=== PATIENT | male | born 1975 | race Caucasian/White ===

== ENCOUNTER 2024-11-25 00:56 | Day surgery (SDC) | payer OTHER, SELFPAY ==
[2024-11-11 13:36] VITALS: BMI 25.7
--- OUTSIDE RECORDS SUMMARY | 2024-11-25 00:58 | XMS_ITS | Clinical Summary ---
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[employer] Gender Identity Not on file Sexual Orientation Not on file Last Filed Vital Signs Vital Sign Reading Time Taken Comments Blood Pressure 122/81 12/14/2021 8:21 AM CDT Pulse 99 12/14/2021 8:21 AM CDT Temperature 36.6 C (97.8 F) 12/14/2021 8:21 AM CDT Respiratory Rate 18 12/14/2021 8:21 AM CDT Oxygen Saturation 98% 12/14/2021 8:21 AM CDT Inhaled Oxygen Concentration - - Weight 90.7 kg (200 lb) 12/14/2021 8:21 AM CDT Height 182.9 cm (6') 12/14/2021 8:21 AM CDT Body Mass Index 27.12 12/14/2021 8:21 AM CDT Plan of Treatment Health Maintenance Due Date Last Done Comments DTAP/TDAP/TD VACCINES (1 - Tdap) 04/25/1994 HEPATITIS B VACCINES (1 of 3 - 19+ 3-dose series) 07/1994 COLORECTAL SCREENING 04/25/2020 Colorectal Cancer Screening 04/25/2020 FIT-DNA Q 3 years 04/25/2020 FIT/FOBT Q 1 year 04/25/2020 Flex Sig/CT Colonography Q 5 years 04/25/2020 INFLUENZA VACCINE (#1) 2024 Insurance [employer] OPEN ACCESS PLUS Care Teams Finger Buff Sewer Relationship Specialty Start Date End Date Villa Bryant DO [address] [place] [address] [place] [phone] PCP - General 03/14/13
[2024-11-25 06:28] VITALS: BP 113/79; PULSE 68; RESP 19; TEMP 36.3; O2SAT 99
[2024-11-25] MEDS: LACTATED RINGERS 1,000 ML 150 ML IV CONT (06:35)
--- NOTE | 2024-11-25 07:24 | WPDANESEPPF ---
Anes - Initial Pre Proc Eval Procedure: Operation Date: 11/25/24 07:30 Proposed Procedures p Screening Colonoscopy - Brian Kim DO Date/Time: 11/25/24 07:24 Surgeon: Brian Kim DO Pre Op Diagnosis: Neoplasm screening Patient Data Age: 49 Gender: M Height: 1.83 m Weight: 85.8 kg Last Vital Signs Temp 36.3 C L 11/25/24 06:28 Pulse 68 11/25/24 06:28 Resp 19 11/25/24 06:28 BP 113/79 11/25/24 06:28 Pulse Ox 99 11/25/24 06:28 O2 Del Method Room Air 11/25/24 06:28 Allergies Allergy/AdvReac Type Severity Reaction Status Date / Time No Known Allergies Allergy Verified 11/25/24 06:27 Home Medications ?Medication ?Instructions ?Recorded ?Confirmed ?Type No Home Medications 08/19/24 11/11/24 History Patient hx anesthesia problems: none Family hx anesthesia problems: none Results Review: All pre-operative results and documents have been reviewed as part of the pre-operative evaluation. [facility] Family History Family History Father Carcinoma of colon Social History Social History Smoking status: Never smoker Alcohol intake: never Substance use: never Do You Feel Safe in your Home?: Yes Lack of Transportation: No Lack of Food: Never True Current Housing: I Have Housing Concerned About Future Housing: No Difficulty Paying Gas/Electric Bills: No Difficulty Paying for Meds: No Currently Unemployed: No Living arrangements: with family Gender identity (if verbalized by the patient): Male Anes - Eval Final PreProcedure Day of Procedure 11/25/24 07:24 Patient weight: normal Heart: regular rate and rhythm Lungs: clear to auscultation Airway: Mallampati scale class II Neurological: alert and oriented Last oral intake: >/= 8 hours ASA classification: I Emergent: no Anesthetic plan: proceed Anesthesia type and monitoring: general GIVS and standard monitoring Results Review: All pre-operative results and documents have been reviewed as part of the pre-operative evaluation. Informed Consent: The patient's anesthetic plan and its attendant risks and benefits were discussed with the patient/family/POA. Questions were solicited and answers provided to the satisfaction of the patient/family/POA.
--- NOTE | 2024-11-25 07:27 | P.HP_ITS ---
H&P: HPI History of Present Illness Date/Time: 11/25/24 07:27 Chief Complaint: Family history of colon cancer Narrative: this is a 49-year-old man who presents for his 1st colonoscopy. His father has had colon cancer. He denies any hematochezia or melena. Review of Systems Review of Systems: All systems reviewed & are unremarkable except as noted in HPI and below Constitutional: Constitutional: Denies chills, Denies fever(s), Denies headache(s) and Denies weight loss Eyes: Eyes: Denies change in vision ENT: Denies dizziness, Denies headache(s), Denies neck mass and Denies throat swelling Cardiovascular: Cardiovascular: Denies chest pain, Denies lightheadedness and Denies dyspnea Respiratory: Respiratory: Denies cough, Denies dyspnea and Denies wheezing Gastrointestinal: Gastrointestinal: Denies abdominal pain, Denies change in bowel habits, Denies nausea and Denies vomiting Genitourinary: Genitourinary: Denies hematuria and Denies dysuria Musculoskeletal: Musculoskeletal: Reports as per HPI Integumentary/Breasts: Skin/Breast: Reports as per HPI Neurologic: Denies dizziness and Denies headache(s) Allergic/Immunologic: Allergic/Immunologic: Denies throat swelling and Denies wheezing PMFSH Family History Family History Father Carcinoma of colon Social History Social History Smoking status: Never smoker Alcohol intake: never Substance use: never Do You Feel Safe in your Home?: Yes Lack of Transportation: No Lack of Food: Never True Current Housing: I Have Housing Concerned About Future Housing: No Difficulty Paying Gas/Electric Bills: No Difficulty Paying for Meds: No Currently Unemployed: No Living arrangements: with family Gender identity (if verbalized by the patient): Male Meds Home Medications and Allergies Home Medications ?Medication ?Instructions ?Recorded ?Confirmed ?Type No Home Medications 08/19/24 11/11/24 H istory Allergies Allergy/AdvReac Type Severity Reaction Status Date / Time No Known Allergies Allergy Verified 11/25/24 06:27 Vital Signs Vital Signs - 24 hr 11/25/24 06:28 Temperature 97.4 F L Pulse Rate 68 Respiratory Rate 19 Blood Pressure 113/79 Pulse Oximetry 99 Oxygen Delivery Room Air Exam Const: General: no acute distress and alert Orientation/consciousness: patient oriented x3 HENMT: Head: normocephalic and atraumatic Ears: hearing grossly normal bilaterally Face/Nose/Sinus: Normal nares present Mouth: Yes Normal oral and palatal mucosa present Eyes: Periorbital: periorbital findings normal Sclera: sclerae normal EOM: EOMs intact bilaterally Neck: Neck: normal visual inspection, no lymphadenopathy and trachea midline Chest: Chest palpation & inspection: normal inspection of the chest Resp: Effort & Inspection: normal respiratory effort Auscultation: clear to auscultation bilaterally Cardio: Jugular venous distension: no JVD Rate: regular rate Rhythm: regular rhythm Heart sounds: S1 normal heart sound present and S2 normal heart sound present Peripheral pulses: Peripheral pulses 2+ throughout GI: Inspection: normal to inspection GI Palp: Yes Soft to palpation, No Tenderness to palpation present (GI), No Guarding due to palpation present (GI) and No Rebound tenderness present Percussion: Yes normal to percussion Auscultation: normal bowel sounds : General: Yes no CVA tenderness Back/Spine/Pelvis: Back: no CVA tenderness Neuro: General: patient oriented x3, no focal motor deficits and CN's II-XI intact bilaterally Cognition (Neuro): normal cognition Speech: normal speech Motor exam (neuro): 5/5 motor strength present throughout Extrem: General: capillary refill normal and no clubbing, cyanosis or edema Assessment and Plan Assessment and plan (1) Family history of colon cancer: Code(s): Z80.0 - Family history of malignant neoplasm of digestive organs Status: Acute Assessment and Plan: I have recommended colonoscopy. I have discussed the procedure, risks, benefits, and alternatives. Questions were answered. Patient is agreeable to proceed.
--- NOTE | 2024-11-25 07:42 | S_PTH ---
PATIENT: Segun Madison LOC: [facility] U#:[id number] AGE/SX: 49/M ROOM: RE11/25/[address]: Brian Kim DO : 1975 BED: DIS: 11/25/2024 SPEC #: [id number] RECD: 11/25/24 10:44 STATUS: ANDREW RERichard #: [id number] TADEO: 11/25/24 07:[address]: Brian Kim DEPT: [facility] Surgical RECD BY: Teresa De La Cruz ENTERED: 11/25/24 10:45 SP TYPE: Surgical OTHR DR: Segun Eldridge MD Tissues: A - Colon Polypectomy B - Colon Polypectomy C - Colon Polypectomy Procedures: Hematoxylin and Eosin Stain Gross and Microscopic Level 4
[2024-11-25 07:59] VITALS: BP 101/65; PULSE 66; RESP 19; O2SAT 98
[2024-11-25 08:09] VITALS: BP 115/78; PULSE 67; RESP 20; O2SAT 98
[2024-11-25 08:19] VITALS: BP 126/82; PULSE 68; RESP 15; O2SAT 98
== END 2024-11-25 08:30 | disposition home or self-care (01) ==
PROVIDERS: PCP Family Medicine; Visit Provider Surgery
PROC: 0DJD8ZZ Inspection of Lower Intestinal Tract, Via Natural or Artificial Opening Endoscopic (ICD-10-PCS; CPT 45378; principal; 2024-11-25 07:30)
DX: Z12.11 Encounter for screening for malignant neoplasm of colon (principal); D12.3 Benign neoplasm of transverse colon; D12.2 Benign neoplasm of ascending colon; K62.1 Rectal polyp; K57.30 Diverticulosis of large intestine without perforation or abscess without bleeding; Z80.0 Family history of malignant neoplasm of digestive organs
CPT/HCPCS: 45385; 88305; J2003; J2704; J7120